=== PATIENT | male | born 1975 | race Caucasian/White ===

== ENCOUNTER → 2016-10-01 | Outpatient (REF) | payer OTHER ==
[2016-10-01 16:04] LABS: BASOPHILS % (AUTO) 0 % (0-2); EOSINOPHILS # (AUTO) 0.4 10^3uL; EOSINOPHILS % (AUTO) 5 % (0-4); LYMPHOCYTES # (AUTO) 2.2 X10^3; MEAN CORPUSCULAR HGB CONC 34.6 g/dL (31.0-37.0); MEAN CORPUSCULAR VOLUME 90 FL (80-100); MEAN PLATELET VOLUME 9.5 FL (6.0-9.5); MONOCYTES % (AUTO) 12 % (3-11); NEUTROPHILS # (AUTO) 5.2 X10^3; NEUTROPHILS % (AUTO) 58 % (51-67); PLATELET COUNT 318 10^3uL (150-450); WHITE BLOOD COUNT 8.92 10^3uL (4.0-11.0)
[2016-10-01 16:17] LABS: BILIRUBIN,URINE Negative (Negative); CLARITY,URINE Clear; COLOR,URINE Yellow; GLUCOSE, URINE (UA) Negative (Negative); LEUKOCYTE ESTERASE ,URINE Negative (Negative); PH,URINE 5.5 (5.0 - 8.0); UROBILINOGEN,URINE 0.2 mg/dL (0.2-1.0)
[2016-10-01 16:29] LABS: ALBUMIN 4.5 g/dL (3.4-5.0); ANION GAP 17.2 MEQ/L (3-15); CALCULATED IONIZED CALCIUM 4.1 mg/dL (3.8-4.6); TOTAL PROTEIN 7.5 g/dL (6.4-8.5)
== END ==
LOC: LAB 15:51
PROVIDERS: ATTEND Physician Assistant Surgical
DX: I10 Essential (primary) hypertension (principal); Z13.6 Encounter for screening for cardiovascular disorders
CPT/HCPCS: 80053; 80061; 81003; 84443; 85025